=== PATIENT | female | born 1985 | race Caucasian/White ===

== ENCOUNTER 2016-10-27 02:11 | Inpatient (IN) | payer OTHER ==
[~2016-10-27] VITALS: Ht 162.6 cm; Wt 78.0 kg
[2016-10-27] MEDS ORDERED: Lactated Ringer's 1,000 ML IV PRN (08:18)
[2016-10-27] MEDS ORDERED: Sodium Chloride LOK Flush 10 mL Syringe IVFLUSH PRN (08:20)
[2016-10-27] MEDS ORDERED: Oxytocin 10 Unit/mL Inj IM PRN ×2 (08:20→17:10)
[2016-10-27] MEDS ORDERED: Methylergonovine 0.2 mg/mL Inj IM PRN ×3 (08:20→21:00)
[2016-10-27] MEDS ORDERED: Hemorrhage Kit, Post Partum XX ONE ×2 (08:20→17:10)
[2016-10-27] MEDS ORDERED: Carboprost 250 mCg/mL Inj IM PRN (08:20)
[2016-10-27 08:36] LABS: Mean Corpuscular Hemoglobin 27.3 pg (27.0-35.0); Mean Corpuscular Volume 83.9 fL (81-100)
--- NOTE | 2016-10-27 08:39 | PCM.HPOB ---
Subjective Date of Service: Oct 27, 2016 Referring Provider: Admitting Physician: Shelton Cortez MD Primary Care Physician: Nopcp Attending Physician: Shelton Cortez MD Chief Complaint Induction of labor History of Present History of Present Illness Paloma Boyle is a 30 year old woman at 40w4d gestation with a PMH of significant for PP depression and heavy pp bleeding with her first baby. She is presenting for induction of labor due to surpassing her due date. has thus far been complicated by intrauterine synechiae and some pre-term spotting. Prior to that start of the induction process the patient's cervix measured 3cm, 50% effacement, and -3 station. and mother are in the room with and appear supportive. She is requesting epidural once the induction process becomes uncomfortable. OB History: (2), Para (1), Term Obstetrical Complications: Other (uterine synechiae) Past Medical History Obstetrical History: PP depression with last Heavy PP bleeding with last resolved placenta previa with last Medical History: GERD Hx Tobacco Use: No Smoking Status: Never Smoker Hx Alcohol Use: No Hx Substance Use: No Past Family History Family History 1st degree relative with HTN Genetic Screening/Counseling Baby father-had child w defect: No Review of Systems Constitutional: Y: Change of appitite, Chills, Dizziness, Fever, Malaise, Other , Pain, Sweats, Weakness, Weight loss Eyes: Denies: Blurred Vision, Conjunctive Inflammation, Double Vision, Eyelid Inflammation, Other, Pain, Redness, Vision Changes ENT: Denies: Dental Problems, Dysphagia, Ear Discharge, Ear Pain, Hoarseness, Membranes Dry, Nasal Congestion, Nose Discharge, Nose Pain, Other, Throat Pain, Tinnitus, Ulcers/Sores in Mouth Cardiovascular: Denies: Chest Pain, Edema, Orthopnea, Other, Palpitations, SOB while laying flat Respiratory: Denies: Cough, Cough with bloody sputum, Other, Pleuritic Chest Pain, Pleuritic Chest Pain, SOB with Exertion, Sputum, Wheezing Gastrointestinal: Reports: Constipation, Denies: Abdominal Pain, Black tarry stools, Blood in stool (red), Change in Appetite, Diarrhea, Epigastric pain, Heartburn, Nausea, Other, Use of Laxatives , Vomiting Genitourinary: Denies: Anuria, Change in Frequency, Dysuria, Hematuria, Incontinence, Nocturia, Other, Retention Musculoskeletal: Reports: Back Pain, Swelling (trace LE edema), Denies: Deformity, Limitation of Function, Neck Pain, Other, Redness, Shoulder Pain Skin/Breasts: Denies: Bruising, Discharge, Dry or Flakiness, Jaundice, Lesions , Masses, Mastalgia, Other, Rash, Scars, Ulcers Skin: Denies: Bruising, Dry or Flakiness, Jaundice, Lesions, Other, Rash, Scars , Ulcers Neurological: Denies: Change in Speech, Confusion, Dizziness, Incoordination, Numbness, Other, Seizures, Somnolence, Tremors, Weakness Psychologic: Denies: Agitation, Anxious, Apprehensive, Depression, Insomnia, Instability, Nervousness, Other Endocrine: Denies: Blood Glucose Review, Change in Appitite, Diaphoresis, Excessive Thirst, Intolerent to Heat/Cold, Other, Recent A1C, Urinating frequently Hematologic: Denies: Abnormal bleeding, Adenopathy, Bruising, Other Medications Home medications Zantac 150 mg tablet vitamin Allergy Coded Allergies: nitrofurantoin (Verified Allergy, Unknown, Rash/ fever, 10/27/16) Exam Vital Signs Exam Category 1 heart tracing Constitutional: Well-developed, Well-nourished, Normal habitus, Well-groomed HEENT: Atraumatic, PERRLA, EOMI, Scleral Anicteric, Mucous Membr Moist/[place] Lungs: Clear to Auscultation, Normal Air Movement Heart: Exam Unremarkable, Regular Rate/Rhythm, Normal S1, Normal S2 Abdomen: Gravid Lymphatic: Normal: Axilla Palpation of Nodes, Groin Palpation of Nodes, Neck Palpation of Nodes Extremities: Pulses Palpable x4, Generalized Edema (Trace LE edema) Neurological/Psychiatric: Alert, Oriented X3, Cooperative, No Acute Distress Neuro: Grossly Neurologically Intact Labs/Diagnostics Maternal Blood Type: A (+) Hx Rho(D) Immune Globulin: No Antibody Screen: Negative Group B Strep Results: Negative Rubella: Immune Lab History: Negative for: Hx Chicken Pox, Hx Gonorrhea, Hx HIV, Hx Herpes, Hx Syphilis OB Intrapartum Assessment/Plan Problems: (1) Active labor at term Plan: Induction with Pitocin anticipate Anesthesia has been consulted for epidural Status: Acute ICD Code: [id number] Pain Evaluation: Adequate Pain Control VTE Mechanical Devices: Intermittant Pneumatic CD Attending Statement The patient was seen and examined together with Dr. Vince Arciniega DO on 2015 and I have added additional information to the note above. Vince Arciniega DO Oct 27, 2016 08:39 Jeri Lange MD Oct 27, 2016 18:05
[2016-10-27] MEDS: Oxytocin 30 Units/500 mL LR 30 UNITS in IV Premix 1 EACH IV PRN ×3 (08:45→19:25)
[2016-10-27] MEDS: Lactated Ringer's 1,000 ML IV SCH ×3 (08:45→14:21)
--- NOTE | 2016-10-27 10:04 | NUR ---
Mother had a history of low milk supply with first. Mother reports breast changes and leaking during which did not occur during first . Discussed normal feeding patterns. Encouraged to spend at least 1-2 hours skin to skin immediately after unless medically contraindicated. And to breastfeed every time is hungry and at least every 3 hours. will call 10/30/15 for support.
[2016-10-27] MEDS ORDERED: fentaNYL-PF 50 mCg/mL 2 mL Inj ONE (13:58)
[2016-10-27] MEDS ORDERED: fentaNYL 2 mCg/mL-Bupivicaine 0.125% 100 mL Premix EPIDURAL ONE (14:08)
[2016-10-27] MEDS ORDERED: Lactated Ringer's 500 ML IV ONE (14:39)
[2016-10-27] MEDS ORDERED: Lactated Ringer's 1,000 ML IV SCH ×2 (14:39→17:09)
[2016-10-27] MEDS ORDERED: Ondansetron 2 mg/mL 2 mL Inj IVPUSH PRN (14:40)
[2016-10-27] MEDS ORDERED: EPHEDrine Sulfate 50 mg/mL Inj IVPUSH PRN (14:40)
[2016-10-27] MEDS ORDERED: fentaNYL 2 mCg/mL-Bupiv 0.125% 100 ML EPIDURAL SCH (14:40)
[2016-10-27] MEDS ORDERED: Atropine 1 mg/10 mL (Code) Syringe IVPUSH PRN (14:40)
--- NOTE | 2016-10-27 14:41 | PCM.HPANE ---
Patient Data Surgeon Admitting Provider:Shelton Cortez MD Attending Provider:Shelton Cortez MD Primary Care Physician:Luz Other Provider:Elba Norton Anesthesia Reason for Visit Induction INDUCTION Ht/WT & BMI Body Mass Index Allergies Coded Allergies: nitrofurantoin (Verified Allergy, Unknown, Rash/ fever, 10/27/16) History Hx Alcohol Use: NoHx Substance Use: No Smoking Status: Never Smoker Stop/Bang Risk Assessment Category Category 1A: Patient has history of documented sleep apnea, and HAS NOT received any narcotic, sedative or anesthesia administration during this stay. Category 1B: Patient has history of documented sleep apnea, and HAS received any narcotic , sedative or anesthesia administration during this stay Category 2: Patient has SUSPECTED Obstructive Sleep Apnea, and HAS received any narcotic , sedative or anesthesia administration during this stay. Category 3: Patient has SUSPECTED Obstructive Sleep Apnea and HAS NOT received narcotic, sedative or anesthesia administration during this stay. Category 4: Outpatient in Procedural Areas with known sleep apnea or who screen positive for High Risk via the STOP/BANG questionnaire. Exam Exam General Appearance: Alert, Oriented X3, Cooperative HEENT/AIRWAY: MP 2 Lungs: Normal Air Movement Heart: Exam Unremarkable Meds/Labs/Diagnostics Admission Meds Current Medications Lactated Ringer's (Lr) 1,000 ml @ 125 mls/hr Q8H IV Last administered on 10/27at 14:21; Start 10/27/16 at 08:18 Labs Test 10/27/16 08:00 White Blood Count 14.3th/mm3 (3.8-10.1) Red Blood Count 4.47mil/mm3 (3.90-5.20) Hemoglobin 12.2g/dL (12.0-15.6) Hematocrit 37.5% (35.0-46.0) Mean Corpuscular Volume 83.9fL (81-100) Mean Corpuscular Hemoglobin 27.3pg (27.0-35.0) Mean Corpuscular Hemoglobin Concent 32.5% (32.0-37.0) Red Cell Distribution Width 14.7% (12.3-15.4) Platelet Count 306bil/L (150-400) Plan Impression Patient chart reviewed, patient interviewed and anesthestic plan with risks, benefits, and alternatives discussed, and informed consent obtained. ASA Physical Status: ASA2 Mod Systemic Disease Anesthetic Plan: Epidural Bene/Risks/Altern/Consents: Yes HP Complete Prior to Induction: Yes Bob Rodney MD Oct 27, 2016 14:41
[2016-10-27] MEDS ORDERED: Bupivacaine-MPF 0.25% 30 mL Inj ONE (15:23)
[2016-10-27] MEDS ORDERED: Sodium Chloride LOK Flush 10 mL Syringe IVFLUSH SCH (16:30)
[2016-10-27] MEDS ORDERED: Benzocaine (Dermoplast) 20% 60 Gm Spray TOPICAL PRN (17:10)
[2016-10-27] MEDS ORDERED: LANOlin HPA 7 Gm Ointment TOPICAL PRN (17:10)
[2016-10-27] MEDS ORDERED: Witch Hazel-Glycerin Pads TOPICAL PRN (17:10)
--- NOTE | 2016-10-27 17:25 | PCM.OBVAG ---
Vaginal Delivery Date of Service Oct 27, 2016 Pre Operative Diagnosis Pre Operative Diagnosis Active Labor at Term Post Operative Diagnosis Post Operative Diagnosis Normal spontaneous vaginal delivery Procedure Obstetical Procedure: Normal Spontaneous Vaginal Delivery Java Lead Developer/Senior Medical Billing Specialist Provider and Senior Medical Billing Specialist: Provider: Dr. Lange Senior Medical Billing Specialist: Dr. Arciniega Indication for Procedure Induction: Active labor Findings Obstetrical Findings: (Male), Cord (3 Vessel), Weight (Pending), 1 minute (6), 5 minutes (8), Placenta (Intact/Normal) Analgesia/Medications Obstetrical Anesthesia: Epidural Procedure Details Procedure Details Paloma Boyle is a 30 y/o G2 now P2 who presented in active labor at 40w4d on 10/27/2016. She had SROM at 12:48. She had an epidural per patient request which resulted in some hypotension and nausea requiring Epinephrine x2 per anesthesia. The patient then progressed to full dilation at 14:38 the same afternoon and began actively pushing shortly thereafter. A sterile drape was placed under the patient's buttocks and the mother resumed expulsive efforts. The patient continued with active expulsive efforts until the head was delivered in OA position and the rest of the body was delivered expeditiously at 16:27 and the baby boy was placed upon the mother's abdomen dried and stimulated. A simple 1st degree perineal tear was then repaired with 1 stitch of 2.0 Vicryl. The baby had APGARs of 6 and 8. Cord blood then was collected. Pitocin opened to 300mL/h and the placenta delivered spontaneously and intact. Sponge, needle and instrument counts were correct x 2 at the close of the procedure. Specimen Specimens: Placenta (for disposal) Blood Loss & Administration Estimated Blood Loss: 300 Post Procedure Plan Post delivery Condition: Mom stable Attending Statement I was present for the entire procedure and performed repair of perineal laceration. I agree with the above documentation. Vince Arciniega DO Oct 27, 2016 17:25 Jeri Lange MD Oct 27, 2016 18:06
[2016-10-27] MEDS: Carboprost 250 mCg/mL Inj IM PRN ×2 (19:25→19:51)
[2016-10-27 20:04] LABS: INR 0.94 ratio
[2016-10-27] MEDS ORDERED: Acetaminophen IV 1,000 MG in IV Premix 1 EACH IV PRN (21:00)
--- NOTE | 2016-10-27 23:19 | PROG NOTE ---
[address] [address] PROGRESS NOTE PATIENT: JEY TYSON : 1985 MR#: [id number] ADMIT: 10/27/2016 JOB ID: [id number] DATE: 10/27/2016 I was called in to patient room for post hemorrhage evaluation. This is a 30-year-old, 2, para 2-0-0-2, status post spontaneous vaginal delivery, today, October 27, 2016, delivered at 16:27. The patient did have history of hemorrhage in her previous delivery secondary to retained placenta. This delivery was spontaneous without complications with estimated blood loss of 300 mL, and placenta was examined by delivering provider, Dr. Lange, and it was intact. Approximally two hours after the delivery, I was called in for hemorrhage evaluation. The patient passed a large clot estimated to be 500 mL. In Exam: The patient noted to be pale and the uterus was atonic and a large clot was removed from the vagina. Approximately 1000 mL of clotted blood was removed. Bimanual exam was performed massaging the uterus. 1000 mcg of misoprostol was inserted rectally and bolus started of 30 units of oxytocin in 500 mL LR. The uterus continued to be atonic. A dose of Methergine 0.2 mg was given IM while continuing to bimanually massage the uterus which continued to be atonic. Then, a dose of Hemabate 250 mcg IM was given and continued to massage the uterus until the uterus started to contract with good tone. A second IV access line was initiated. Hemoglobin and hematocrit and coagulation profile was drawn. Blood pressure was 124/80, heart rate 85-96, and 99% saturation on room air. Two units of blood was cross-matched and on hold. Will continue to observe. The patient appears to have stable vital signs at this point with good urine output. A Zarco catheter was inserted with 500 mL clear urine that was drained at the insertion. MTDD
[2016-10-27 23:40] LABS: INR 0.94 ratio
[2016-10-27 23:44] LABS: Mean Corpuscular Hemoglobin 27.7 pg (27.0-35.0); Mean Corpuscular Volume 84.6 fL (81-100)
[2016-10-28] MEDS ORDERED: oxyCODONE-Acetamin 5-325 mg Tablet PO PRN (05:35)
[2016-10-28 08:55] LABS: Mean Corpuscular Hemoglobin 27.7 pg (27.0-35.0); Mean Corpuscular Volume 85.9 fL (81-100)
[2016-10-28 08:56] LABS: INR 0.96 ratio
--- NOTE | 2016-10-28 08:56 | PCM.PNOBPP ---
Subjective Date of Service Oct 28, 2016 Post : Spontaneous Vaginal Delivery Visit History Paloma is a G2 now P2 with a history of post hemorrhage with her previous due to retained placenta who presented to the center on 10/27/16 for induction of labor at 40 weeks and 4 days gestation. She is not a GBS carrier. She had a of a male infant at 16:27 on 10/27/16 with a 1st degree perineal laceration which was repaired immediately following delivery. At 19:25 on 10/27/16, she was found to have poor uterine tone with bleeding for which she was given Pitocin, methargen, and Hemabate with improvement of uterine tone and subsequent reduction of her bleeding. She has stood up from bed with a small amount of lightheadedness, though she has not yet ambulated. Her hgb was 12.2 at admission and has declined to 8.6. Subjective Paloma states that she is feeling relatively well. She denies any lightheadedness while in bed. She reports feeling pretty fatigued. Her has been performing diaper changes and other care of the baby while she recovers. She has been breast feeding her son for 45minutes at a time. Lochia: Normal Pain Management: PO pain meds Gastrointestinal: Good Appetite, No N/V, Passing Flatus Postop Activity: Other (Not yet ambulating) Group B Strep Results: Negative Rubella: Immune Blood Type: A (+) Labs Laboratory Tests 10/28/16 07:05: Exam Vital Signs Vital Signs BP 111/68mmHg HE 84 RR 19 Temp 36.1 Vital Signs: VS reviewed, stable Exam Abdomen: Fundus firm (at the level of the umbilicus) : Armenta catheter (draining translucent pedro colored urine) Extremities: No tenderness/swelling Lungs: Clear to Auscultation, Normal Air Movement Heart: Regular Rate/Rhythm, No Murmurs/Rubs/Gallops General: Alert, Oriented X3, Cooperative, No Acute Distress, Other (+ pallor) Additional Information CBC Test 10/28/16 07:05 White Blood Count 17.3th/mm3 (3.8-10.1) Red Blood Count 3.11mil/mm3 (3.90-5.20) Hemoglobin 8.6g/dL (12.0-15.6) Hematocrit 26.7% (35.0-46.0) Mean Corpuscular Volume 85.9fL (81-100) Mean Corpuscular Hemoglobin 27.7pg (27.0-35.0) Mean Corpuscular Hemoglobin Concent 32.2% (32.0-37.0) Red Cell Distribution Width 14.5% (12.3-15.4) Platelet Count 239bil/L (150-400) OB Post Assessment/Plan Assessment Paloma does not appear to have any further heavy bleeding, will monitor closely. Her hgb and hct have declined and she is mildly symptomatic. Problems: (1) (normal spontaneous vaginal delivery) Status: Acute ICD Code: O80 (2) Primary hemorrhage Status: Acute ICD Code: O72.1 Pain Evaluation: Adequate Pain Control VTE Mechanical Devices: Intermittant Pneumatic CD Post plan: Continue routine post care Plan: Monitor uterine tone and bleeding Repeat H&H promptly if her bleeding increases Consider blood transfusion if she becomes more symptomatic with her anemia or if her hgb < 7.0 Consider discharge tomorrow if she remains stable Attending Statement Paloma was seen and examined this morning. Her bleeding has stabilized following her hemorrhage yesterday evening. Pain is well controlled. She is ambulating with some dizziness. Armenta catheter is in place with large amount of clear yellow urine. Will continue iron three times daily with colace and vitamin C. She is otherwise doing well. Remove armenta catheter today. Anticipate discharge home tomorrow. Will repeat CBC in AM. Hgb dropped from 12.5->8.6 Anuradha Ricardo DO Oct 28, 2016 08:44 Hannah Cope MD Oct 28, 2016 10:18
[2016-10-28] MEDS: HYDROcodone-APAP 5-325 mg Tablet PO PRN ×3 (09:16→23:25)
[2016-10-28] MEDS: Ascorbic Acid 500 mg Tablet PO SCH (09:17)
[2016-10-29] MEDS: HYDROcodone-APAP 5-325 mg Tablet PO PRN (05:38)
[2016-10-29 07:14] LABS: BASOPHILS % (AUTO) 0.2 % (0-3); EOSINOPHILS % (AUTO) 1.8 % (0-5); MONOCYTES % (AUTO) 7.8 % (4-12); Mean Corpuscular Hemoglobin 27.4 pg (27.0-35.0); Mean Corpuscular Volume 87.5 fL (81-100); NEUTROPHILS % (AUTO) 63.3 % (40-74); Platelet Count 254 bil/L (150-400)
--- NOTE | 2016-10-29 07:15 | NUR ---
Mom breast fed off and on between [id number], frequently rooting and sucking on hand. Weight down 7%, Dr. Osuna notified. Mom had difficulty with mild supply in the past, see note. Mom caring for self and babe w/attentive FOB at the bedside.
--- NOTE | 2016-10-29 08:34 | PCM.DIOB ---
Obstetrical Disch Instruction Dates of Hospitalization Date of Hospital Admission Oct 27, 2016 at 06:55 Providers Admitting Physician: Shelton Cortez MD Primary Care Physician: Luz Attending Physician: Shelton Cortez MD Discharge Diagnosis Discharge Diagnosis Spontaneous vaginal delivery, hemorrhage Problems: (1) (normal spontaneous vaginal delivery) Status: Acute ICD Code: O80 (2) Primary hemorrhage Status: Resolved ICD Code: O72.1 Diet Discharge Diet: No restrictions Activity Discharge Activity-General: Pelvic Rest for 6 weeks, Try not to overdue, Be up and about, Balance rest and activity Dressing and Incisional Care Hygiene: May shower, Sitz bath, Dermoplast spray Additional Instructions Discharge Instructions Please call with severe pain, temperature greater than 100.5, malodorous vaginal discharge or heavy vaginal bleeding. Please also notify us if you experience chest pain, palpitations, shortness of breath as these are signs of acute anemia. Continue to take the iron pills three times a day with a stool softener to help rebuild your blood and iron levels. Follow Up Plan Follow Up Plan 6 weeks Mid-level Provider (F9): Jeri Lange MD Call your provider for: Fever or Chills, Shortness of breath, Heavy vaginal bleeding Hannah oCpe MD Oct 29, 2016 08:34
[2016-10-29] MEDS ORDERED: DOCU-41 PO (08:47)
[2016-10-29] MEDS ORDERED: FERR-74 PO (08:47)
[2016-10-29] MEDS ORDERED: IBUP800T28 PO (08:47)
[2016-10-29 09:00] VITALS: BP 116/59; PULSE 64; RESP 18
[2016-10-29] MEDS: Ascorbic Acid 500 mg Tablet PO SCH (09:08)
--- NOTE | 2016-10-29 09:55 | DIS ---
[address] [address] DISCHARGE SUMMARY PATIENT: JEY TYSON : 1985 MR#: [id number] ADMIT: 10/27/2016 JOB ID: [id number] DIS: 10/29/2016 DATE: 10/29/2016 ADMISSION DIAGNOSES: 1. Labor. 2. History of depression. 3. History of previous hemorrhage. DISCHARGE DIAGNOSES: 1. Labor. 2. History of depression. 3. History of previous hemorrhage. 4. Spontaneous vaginal delivery of a live born male infant, born at 1627 hours on October 27, 2016. 5. hemorrhage with 1500 cc estimated blood loss. PROCEDURE PERFORMED: 1. Spontaneous vaginal delivery. 2. Bimanual uterine massage remote from delivery in treatment of hemorrhage. REASON FOR ADMISSION AND HOSPITAL COURSE: This is a 30-year-old, G2, P1 0-0-1 female presented at 40+4 weeks gestational age in active labor. Her was complicated by history of depression as well as a history of heavy bleeding with hemorrhage with her 1st baby. She has also had intrauterine synechiae noted in this and had been receiving NSTs in the clinic. She presented for an induction of labor on the . Pitocin was started per protocol and the patient did receive an epidural. Following epidural placement, she did have some hypotension which resolved with epinephrine by anesthesia. She had spontaneous rupture of membranes at 1248 on the afternoon of the , and she progressed to complete by 1438 the same day. She then went on to deliver a live born male infant. Please see the delivery note for details regarding this. The delivery was uncomplicated, however approximately 2 hours after delivery the patient began having increasing vaginal bleeding and the on-call provider was consulted at which point she diagnosed hemorrhage and cleared the uterus of 1500 cc of clot and blood. After administration of uterotonics and bimanual massage her fundus was noted to be firm. A Zarco catheter was placed to further help evaluate her bleeding and following this the patient did well. By day #1 a hemoglobin was collected which returned with a drop from 12.2, down to 8.6. She was making a large amount of clear yellow urine and at this point the Zarco catheter was removed, and she was ambulating with some dizziness. Ferrous sulfate was started 3 times daily to help with her anemia and given her hemorrhage she was kept until day #2. By day #2 her pain was well controlled. She was tolerating a regular diet, ambulating, and voiding well on her own and hemoglobin was noted to be stable greater than 8. It was at this point in time, she was deemed stable for discharge. PHYSICAL EXAMINATION: On day of discharge, blood pressure is 107/64, heart rate 68, respiratory rate 16, temp is 36.7. In general she is awake, alert, oriented, in no acute distress. Heart shows regular rate and rhythm. Her abdomen is soft, nontender, nondistended. Fundus is firm. Her extremities show no tenderness or edema. INSTRUCTIONS AT DISCHARGE: Patient is advised to remain on pelvic rest for 6 weeks including no tampons, douching, or intercourse. She is to call with any signs or symptoms of infection including fever greater than 100.5 degrees, severe pain, malodorous vaginal discharge, or heavy vaginal bleeding filling more than a pad per hour. She was asked to call with any signs or symptoms of acute anemia including chest pain, palpitations, shortness of breath, heavy vaginal bleeding, or worsening dizziness. She was given ibuprofen 800 mg p.o. q.8 h. p.r.n. pain as well as Colace 100 mg p.o. b.i.d. and ferrous sulfate 325 p.o. t.i.d. She was asked to continue her vitamins as prescribed. All questions and concerns of the patient were answered. She was deemed stable for discharge on day #2.
[2016-10-29] MEDS ORDERED: Methylergonovine 0.2 mg/mL Inj IM ONE (14:24)
== END 2016-10-29 14:25 | disposition home or self-care (01) | DRG 774 ==
LOC: FBC 06:55
PROVIDERS: ADMIT Obstetrics & Gynecology; ATTEND Obstetrics & Gynecology
PROC: 10E0XZZ Delivery of Products of Conception, External Approach (ICD-10-PCS; principal; 2016-10-27)
PROC: 0HQ9XZZ Repair Perineum Skin, External Approach (ICD-10-PCS; 2016-10-27)
PROC: 3E0P7GC Introduction of Other Therapeutic Substance into Female Reproductive, Via Natural or Artificial Opening (ICD-10-PCS; 2016-10-27)
DX: O48.0 Post-term pregnancy (principal); O72.1 Other immediate postpartum hemorrhage; O70.0 First degree perineal laceration during delivery; Z3A.40 40 weeks gestation of pregnancy; Z37.0 Single live birth